=== PATIENT | female | born 1955 | race Caucasian/White ===

== ENCOUNTER 2018-04-24 08:51 | Outpatient (CLI) | payer OTHER ==
[2018-04-24 09:18] VITALS: BMI 36.6
== END 2018-04-24 08:58 | disposition short-term general hospital (02) ==
LOC: AMBL 08:51
PROVIDERS: ATTEND Emergency Medicine
DX: T20.10XA Burn of first degree of head, face, and neck, unspecified site, initial encounter (principal); T21.11XA Burn of first degree of chest wall, initial encounter; X10.1XXA Contact with hot food, initial encounter

== ENCOUNTER 2018-04-24 09:06 | Emergency (ER) | payer OTHER ==
[2018-04-24 09:18] VITALS: TEMP 98.1; BMI 36.6
[2018-04-24] MEDS ORDERED: SILVADENE CREAM TP STA (09:28)
[2018-04-24] MEDS ORDERED: BENADRYL PO STA (09:28)
[2018-04-24 09:48] VITALS: BP 144/79
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
== END 2018-04-24 12:18 | disposition home or self-care (01) ==
LOC: ED 09:06
DX: T20.10XA Burn of first degree of head, face, and neck, unspecified site, initial encounter (principal); T21.11XA Burn of first degree of chest wall, initial encounter; X12.XXXA Contact with other hot fluids, initial encounter
CPT/HCPCS: 99283